=== PATIENT | female | born 1960 | race Two or more races ===

== ENCOUNTER 2025-08-31 10:39 | Emergency (ER) | payer OTHER ==
[~2025-08-31] VITALS: Ht 170.2 cm; Wt 72.9 kg
--- NOTE | 2025-08-31 11:51 | ED.PDOC ---
SOB-HPI HPI Comments 65 year old female presented with respiratory difficulties and elevated blood pressure onset 1 week. The patient reported experiencing difficulty breathing for a week and a half. The symptoms included intermittent throat issues and voice changes. The patient stated feeling miserable and exhausted. The patient mentioned having asthma, using oxygen at home, and utilizing a nebulizer and inhaler without relief. The patient reported a history of elevated blood pressure readings, with the most recent being 159 at pain management and 157 at the current visit, while their average is typically between 103 to 105. The patient reported not having a fever and had two negative COVID tests. The patient is 65 years old, which they believe might contribute to their condition. The patient reported having a cough but not producing any sputum, even with nebulizer and inhaler use. Pertinent negatives include no recent surgeries within the last four weeks and no history of coughing up blood. Chief Complaint: Flu like Time Seen by MD: 11:40 Reviewed notes: Medications, Allergies Information Source: Patient Mode of Arrival: Ambulatory Severity: Moderate Timing: Weeks Duration: Since onset Context: At Rest PE Risk Factors: None History of: Asthma Prehospital treatment: Breathing Tx Modifying Factors: Nothing Associated Signs and Symptoms: Cough, Sore Throat If cough with SOB: Non-Productive Past Medical History PAST MEDICAL HISTORY: Asthma Surgical History: Cholecystectomy INCLUSION SPECIAL EDUCATOR History: No Pertinent INCLUSION SPECIAL EDUCATOR History Social History Smoker: Cigarettes Alcohol: Denies ETOH Use Drugs: Denies Drug Use Lives In: Home All Other Systems: Reviewed and Negative (as per HPI) Physical Exam General Appearance: No Apparent Distress, Normal HEENT: Normal ENT Inspection, Pharynx Normal, TMs Normal Neck: Full Range of Motion, Non-Tender, Normal, Normal Inspection Respiratory: Chest Non-Tender, Lungs Clear, No Accessory Muscle Use, No Respiratory Distress, Normal Breath Sounds Cardiovascular: No Edema, No JVD, No Murmur, No Gallop, Normal Peripheral Pulses, Regular Rate/Rhythm Breast Exam: Deferred Gastrointestinal: No Organomegaly, Non Tender, No Pulsatile Mass, Normal Bowel Sounds, Soft Genitalia: Deferred Pelvic: Deferred Rectal: Deferred Extremities: No calf tenderness, Normal capillary refill, Normal inspection, Normal range of motion, Non-tender, No pedal edema Musculoskeletal : Apperance: Normal Neurologic: Alert, biometric technician II-XII nml as Tested, No Motor Deficits, Normal Affect, Normal Mood, No Sensory Deficits Cerebellar Function: Normal Reflexes: Normal Skin: Dry, Normal Color, Warm Lymphatic: No Adenopathy Was a procedure done? Was a procedure done?: No Differential Dx Differential Diagnosis: Other X-Ray, Labs, Meds, VS Vital Signs Date Time Temp Pulse Resp B/P (MAP) Pulse Ox O2 Delivery O2 Flow Rate FiO2 08/31/25 13:32 78 16 96 Room Air 08/31/25 13:32 98.4 87 17 138/94 (109) 96 98.4 08/31/25 10:40 98.1 74 20 157/85 97 98.1 Lab Test 08/31/25 11:59 08/31/25 11:56 Range/Units Urine Color Colorless Yellow Urine Clarity Clear Clear Urine pH 7.0 5.0-9.0 Urine Specific [place] 1.006 1.001-1.035 Urine Protein Negative Negative Urine Ketones Negative Negative Urine Blood Negative Negative /uL Urine Nitrite Negative Negative Urine Bilirubin Negative Negative Urine Urobilinogen Normal Negative mg/dL Urine Leukocyte Esterase Negative Negative /uL Urine RBC 1 0 - 4 /hpf Urine Microscopic WBC < 1 0-5 /HPF Urine Squamous Epithelial Cells Few <5 /hpf Urine Bacteria None seen None Seen /hpf Urine Glucose Normal Normal mg/dL White Blood Count 7.6 4.4-10.8 10^3/uL Red Blood Count 4.62 4.0-5.20 10^6/uL Hemoglobin 14.0 12.2-16.2 g/dL Hematocrit 40.9 36.0-46.0 % Mean Corpuscular Volume 88.5 80.0-100.0 fL Mean Corpuscular Hemoglobin 30.3 28.0-32.0 pg Mean Corpuscular Hemoglobin Concent 34.3 32.0-36.0 g/dL Red Cell Distribution Width 13.8 11.8-14.3 % Platelet Count 308 140-450 10^3/uL Mean Platelet Volume 8.0 6.9-10.8 fL Neutrophils (%) (Auto) 68.2 37.0-80.0 % Lymphocytes (%) (Auto) 25.3 10.0-50.0 % Monocytes (%) (Auto) 4.7 0.0-12.0 % Eosinophils (%) (Auto) 0.9 0.0-7.0 % Basophils (%) (Auto) 0.9 0.0-2.0 % Neutrophils # (Auto) 5.2 1.6-8.6 10 ^3/uL Lymphocytes # (Auto) 1.9 0.4-5.4 10 ^3/uL Monocytes # (Auto) 0.4 0-1.3 10 ^3/uL Eosinophils # (Auto) 0.1 0-0.8 10 ^3/uL Basophils # (Auto) 0.1 0-0.2 10 ^3/uL Nucleated Red Blood Cells 0.1 % Sodium Level 139 136-145 mmol/L Potassium Level 2.9 L 3.5-5.1 mmol/L Chloride Level 103 98-107 mmol/L Carbon Dioxide Level 26 20-31 mmol/L Anion Gap 10 5-15 Blood Urea Nitrogen 8 L 9-23 mg/dL Creatinine 0.88 0.550-1.02 mg/dL Glomerular Filtration Rate Calc 74 >90 mL/min BUN/Creatinine Ratio 9.1 L 10.0-20.0 Serum Glucose 95 74-106 mg/dL Calcium Level 9.7 8.7-10.4 mg/dL [place] [id number] Ph: [phone] DIAGNOSTIC IMAGING Diagnostic Imaging Report : [id number] Signed PATIENT: HEATHER SINGLETONT: [id number] UNIT: [id number] : 1960 LOC: ER ROOM / BED: / AGE / SEX: 65 / F ADM STATUS: REG ER SERVICE 1143 ORDERING PHYSICIAN: CAREN MCALLISTER NP PROCEDURE(s): CXR1 - CHEST XRAY 1 VIEW REASON: r/o pna ORDER NUMBER(s): [id number], ACCESSION NUMBER(s): [id number] CHEST RADIOGRAPH Indication: r/o pna Technique: Single frontal view of the chest was obtained COMPARISON: XR CHEST 2 VIEW on DOS: 12/02/24 FINDINGS: Lines and Tubes: None Lungs: Left basilar subsegmental atelectasis. Pleura: No effusion. No pneumothorax. Cardiomediastinal contours: Unremarkable Bones: Unremarkable IMPRESSION: Left basilar subsegmental atelectasis. ATED BY: OVI TRAVIS MD DICTATED DATE/TIME: 08/31/251221 SIGNED BY: OVI TRAVIS MD SIGNED DATE/TIME: 08/31/251221 CC: X-Ray, Labs, Meds, VS Comment 65 year old female presented with respiratory difficulties and elevated blood pressure onset 1 week. Patient arrives alert and oriented, ABC's intact, afebrile, vital signs stable, saturating well in room air labs were ordered. CBC was ordered to exclude anemia, blood loss, or infection. BMP was ordered to exclude electrolyte abnormalities, renal failure, dehydration, hyperglycemia Urinalysis was ordered to rule out UTI or hematuria. Diagnostic imaging ordered by me and results interpreted by radiology : XY CHEST: IMPRESSION: Left basilar subsegmental atelectasis. SSMENT: 1. Respiratory Difficulty: The patient's symptoms of difficulty breathing, intermittent throat issues, and voice changes could be related to asthma exacerbation, especially given the patient's smoking history and lack of relief from nebulizers and inhalers. The absence of fever and negative COVID tests suggest that an infection is less likely. 2. Hypertension: The patient reported elevated blood pressure readings, which are higher than their normal range. This could be contributing to their overall feeling of exhaustion and respiratory symptoms. The potential for secondary causes such as stress or underlying undiagnosed conditions should be considered. 3. Possible Lung Pathology: Due to the patient's smoking history, age, and per sistent symptoms, there is a need to rule out any lung pathology, such as pulmonary embolism, as suggested by the decision to obtain a chest X-ray. PLAN: - Treatment: Continued use of nebulizer and inhaler for asthma management. - Tests: Ordered chest X-ray to rule out potential lung pathologies and CBC, BMP to check for electrolyte imbalances, infections, and anemia. - Patient Education: Discussed the importance of smoking cessation to improve respiratory symptoms and overall health. - Follow-Up: Advised follow-up visit after test results are available to discuss further management. - Disposition: The patient was advised to continue monitoring blood pressure and seek urgent care if symptoms worsen. Time of 1ST Reevaluation: 12:10 Reevaluation 1ST: Improved Patient Education/Counseling: Diagnosis, Treatment Family Education/Counseling: No Family Present SEPSIS Sepsis Screen Date sepsis recognized/suspect: Aug 31, 2025 Time Sepsis recognized/suspect: 1042 Recent Procedure: No On Antibiotic Therapy: No Respiratory Rate >20: No Heart Rate >90: No Temp<36 C (96.8 F) or >38.3 C: No SBP <90 or MAP <65 mmHG: No New Acute Mental Status Change: No Is the patient on CPAP, BIPAP,: No Physician Orders Chest Xray 1 View (08/31/25 11:43) Incentive Spirometry (08/31/25 13:02) Vital Signs Date Time Temp Pulse Resp B/P (MAP) Pulse Ox O2 Delivery O2 Flow Rate FiO2 08/31/25 13:32 78 16 96 Room Air 08/31/25 13:32 98.4 87 17 138/94 (109) 96 98.4 08/31/25 10:40 98.1 74 20 157/85 97 98.1 Laboratory Tests Test 08/31/25 11:56 White Blood Count 7.6 10^3/uL (4.4-10.8) Departure 1 Departure Time of Disposition: 13:01 Impression: Primary Impression: Atelectasis of left lung Disposition: 01 HOME / SELF CARE / HOMELESS Condition: Stable Additional Instructions: F/u with PCP ini 24-48 hours e-Prescriptions Doxycycline Hyclate (DOXYCYCLINE HYCLATE) 100 Mg Tab 1 TAB PO BID for 7 Days, #14 TAB 0 Refills Prov: CAREN MCALLISTER NP 08/31/25 Critical Care Note Critical Care Time?: No Stability Stability form required: No Heart Score Heart Score: Heart Score Response (Comments) Value History N/A 0 EKG N/A 0 Age N/A 0 Risk Factors N/A 0 Troponin N/A 0 Total 0 I personally scribed for CAREN MCALLISTER BAKER ([email or web address]) on 08/31/25 at 11:51. Electronically submitted by [address] [facility] ([email or web address]). I personally scribed for CAREN MCALLISTER BAKER ([email or web address]) on 08/31/25 at 12:32. Electronically submitted by [facility] ([email or web address]). CAREN MCALLISTER NP Aug 31, 2025 11:51
[2025-08-31 12:18] LABS: Hematocrit 40.9 % (36.0-46.0); Hemoglobin 14.0 g/dL (12.2-16.2); Mean Corpuscular Hemoglobin 30.3 pg (28.0-32.0); Mean Corpuscular Volume 88.5 fL (80.0-100.0); Nucleated Red Blood Cells % 0.1 %
[2025-08-31 12:23] LABS: Chloride 103 mmol/L (98-107); Sodium 139 mmol/L (136-145)
[2025-08-31 12:24] LABS: Anion Gap 10 (5-15); Calcium 9.7 mg/dL (8.7-10.4); Carbon Dioxide 26 mmol/L (20-31)
[2025-08-31 12:25] LABS: Potassium 2.9 mmol/L (3.5-5.1)
--- NOTE | 2025-08-31 12:25 | DVH ---
CHEST RADIOGRAPH Indication: r/o pna Technique: Single frontal view of the chest was obtained COMPARISON: XR CHEST 2 VIEW on DOS: 12/02/24 FINDINGS: Lines and Tubes: None Lungs: Left basilar subsegmental atelectasis. Pleura: No effusion. No pneumothorax. Cardiomediastinal contours: Unremarkable Bones: Unremarkable IMPRESSION: Left basilar subsegmental atelectasis.
[2025-08-31 12:29] LABS: BUN/Creatinine Ratio 9.1 (10.0-20.0); Glucose 95 mg/dL (74-106)
[2025-08-31 12:30] LABS: Blood Urea Nitrogen 8 mg/dL (9-23)
[2025-08-31 12:46] LABS: Urine Protein, UAD Negative (Negative)
[2025-08-31] MEDS ORDERED: DOXY-286 PO (13:02)
[2025-08-31 13:32] VITALS: BP 138/94; PULSE 78; RESP 16; TEMP 98.4; O2SAT 96
== END 2025-08-31 13:35 | disposition home or self-care (01) ==
LOC: ER 10:39
DX: J98.11 Atelectasis (principal); I10 Essential (primary) hypertension; J45.909 Unspecified asthma, uncomplicated; F17.210 Nicotine dependence, cigarettes, uncomplicated; Z90.49 Acquired absence of other specified parts of digestive tract
CPT/HCPCS: 36415; 71045; 80048; 81001; 85025